=== PATIENT | male | born 1980 | race Caucasian/White ===

== ENCOUNTER → 2016-11-11 | Outpatient (CLI) | payer OTHER ==
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
== END | disposition home or self-care (01) ==
LOC: DXRADRC 11:40
PROVIDERS: ATTEND Family Medicine
DX: M54.2 Cervicalgia (principal)
CPT/HCPCS: 72040

== ENCOUNTER 2018-02-25 23:10 | Emergency (ER) | payer OTHER ==
[~2018-02-25] VITALS: Ht 182.9 cm; Wt 83.9 kg
[2018-02-25 23:30] VITALS: BP 130/92
[2018-02-25] MEDS ORDERED: MORPHINE SULFATE 10 MG/ML SYRINGE. IM ONE (23:30)
[2018-02-25] MEDS ORDERED: DIPHTH,PERTUSS(ACELL),TET TOX 0.5 ML DISP.SYRIN. VAX IM ONE (23:30)
[2018-02-25] MEDS ORDERED: ONDANSETRON ODT 4 MG TAB.RAPDIS PO ONE (23:30)
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
[2018-02-26] MEDS ORDERED: ACETAMINOPHEN 500 MG TABLET PO ONE ×2 (01:11→01:15)
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
== END 2018-02-26 01:16 | disposition short-term general hospital (02) ==
LOC: ER 23:10 → EEVIPCON 23:10 → ER 02-26 01:16
DX: S01.01XA Laceration without foreign body of scalp, initial encounter (principal); Z88.0 Allergy status to penicillin; W18.09XA Striking against other object with subsequent fall, initial encounter; Y93.89 Activity, other specified; Y92.148 Other place in prison as the place of occurrence of the external cause; Y99.8 Other external cause status
CPT/HCPCS: 12004; 70450; 90471; 90715; 99285; J2270; Q0162